=== PATIENT | male | born 1955 ===

== ENCOUNTER → 2017-12-20 | Outpatient (CLI) | payer BC ==
[2017-12-20 13:18] LABS: ALBUMIN 3.7 gm/dl (3.4-5.0); ALT/SGPT 27 U/L (12-78); AST/SGOT 19 U/L (15-37); BLOOD UREA NITROGEN 18 mg/dl (7-18); CALCIUM 8.7 mg/dl (8.5-10.1); CARBON DIOXIDE 27 mmol/L (21-32); CREATININE 1.05 mg/dl (0.60-1.40); GLUCOSE 103 mg/dl (70-99); POTASSIUM 3.8 mmol/L (3.5-5.1); SODIUM 139 mmol/L (136-145)
[2017-12-20 13:20] LABS: ALKALINE PHOSPHATASE 68 U/L (45-117); CHOLESTEROL 188 mg/dl (0-200); LDL CHOLESTEROL CALCULATED 106 mg/dl; TOTAL PROTEIN 7.1 gm/dl (6.4-8.2)
== END | disposition home or self-care (01) ==
LOC: C.LABPVFM 09:52
PROVIDERS: ATTEND Family Medicine
DX: I10 Essential (primary) hypertension (principal); E78.5 Hyperlipidemia, unspecified; G47.30 Sleep apnea, unspecified

== ENCOUNTER 2021-02-20 06:25 | Inpatient (IN) ==
[2021-02-20] MEDS ORDERED: SODIUM CHLORIDE 0.9% 500 ML IV ONE ×2 (06:56→08:39)
[2021-02-20] MEDS ORDERED: ACETAMINOPHEN 1,000 MG/100 ML VIAL IV STA (06:56)
[2021-02-20] MEDS ORDERED: IPRATROPIUM BROMIDE/ALBUTEROL respimat INH INH STA (06:56)
[2021-02-20] MEDS ORDERED: guaiFENesin 600 MG TABCR PO STA (06:56)
[2021-02-20] MEDS ORDERED: dexAMETHasone**PF** 10 MG/ML VIAL IV ONE (06:56)
[2021-02-20 07:11] LABS: Basophils # (auto) 0.01 K/uL (0-0.2); Basophils % (auto) 0.1 %; Hematocrit (blood only) 37.3 % (42-52); Hemoglobin 13.6 g/dL (14.0-18.0); Immature Granulocytes # (auto) 0.04 K/uL (0.00-0.02); Immature Granulocytes % (auto) 0.5 %; Lymphocytes # (auto) 0.36 K/uL (1.2-3.4); Lymphocytes % (auto) 4.6 %; Mean Corpuscular Hemoglobin 31.1 pg (25-34); Mean Corpuscular Hgb Conc 36.5 g/dL (32-36); Mean Corpuscular Volume 85.4 fL (80-100); Mean Platelet Volume 9.8 fL (7.4-10.4); Monocytes # (auto) 0.36 K/uL (0.11-0.59); Monocytes % (auto) 4.6 %; Neutrophils # (auto) 7.04 K/uL (1.4-6.5); Neutrophils % (auto) 90.2 %; Platelet Count 256 K/uL (130-400); RDW Coefficient of Variation 13.1 % (11.5-14.5); RDW Standard Deviation 41.1 fL (36.4-46.3); Red Blood Count 4.37 M/uL (4.7-6.1); White Blood Count 7.81 K/uL (4.8-10.8)
--- NOTE | 2021-02-20 07:15 | Emergency Department Note ---
Impression & Plan Pneumonia due to COVID-19 virus, Multifocal pneumonia, Acute respiratory failure with hypoxia ED Provider Note NAME: KAYLA RIVERA AGE: 65 SEX: M ARRIVES VIA: Walk-In INFORMANT: Patient, ED PROVIDER(S): Josh Zaragoza MD CHIEF COMPLAINT: SOB PLAN: Disposition: Admit MEDICAL DECISION MAKING: The patient is a pleasant 65-year-old gentleman with a past medical history of hypertension who presents to the emergency department with worsening shortness of breath found to be hypoxic in the mid 80s despite being on oxygen in the setting of being evaluated emergency department several days ago when he was diagnosed with COVID-19 and multifocal pneumonia related to that with hypoxia room air to 85% and given his risk factors it was strongly recommended that he be admitted but ultimately was decided that he did not want to stay and so home oxygen was arranged to reduce the risk of worsening however he reports he has continued to worsen since then. His at the bedside reports that she was not present when he was seen and only found out that it was recommended that he stay in the hospital on his last visit when he she looked through the paperwork when he got home. The patient admits that he "should have stayed". Today he is agreeable to being admitted to the hospital. Otherwise he reports feeling feverish but has not had objective fever. He has had intermittent sputum production that is thick but white. He reports episode nausea and vomiting when he had increased secretions in his throat yesterday but does not feel nauseated at this time. He denies chest pain, abdominal pain, urinary symptoms. On arrival the patient is uncomfortable, moderately dyspneic with mild respiratory distress, afebrile with respiratory rate in the 30s and hypoxic to 85% on 2 L nasal cannula with vital signs otherwise stable. Once placed on ox ygen mask at 10 L the patient's O2 saturation gradually improved to low-mid 90s and he appeared more comfortable. On exam the patient has rhonchi of the lower lung coates. Abdomen is benign. He appears clinically dry. EKG without overt acute ischemia. CXR with worsening multifocal PNA. WBC and platelets wnl. H/H similar to prior. Chemistry without acidosis. Potassium 3.3. Otherwise, electrolytes unremarkable. LFTs nonspecific mild elevations similar to prior visit. Troponin negative/undetectable. BNP wnl. Lipase wnl. Treatment initiated with IVF hydration, dexamethasone, guaifenesin, and Combivent with symptoms stable/improving. Case was d/w Dr. Tanner [facility] [place] hospitalist who will evaluate the patient for admission. Triage Nursing notes reviewed and agree them. Prior medical records reviewed Vital Signs: reviewed and remarkable for hypoxia and tachypnea. Differential diagnosis: Reactive airway disease, pneumonia, pneumothorax, COPD, CHF, infections, cardiac ischemia, pulmonary embolism, musculoskeletal, gastrointestinal, as well as other pathologies. ER treatment provided: See below. Diagnostics interpreted by me: ECG: Sinus rhythm with PACs with aberrant conduction, 74 bpm, right bundle branch block, left anterior fascicular block, no overt ST elevation. Cardiac Monitoring: An order for continuous cardiac monitoring was placed and demonstrated Sinus rhythm with PACs with aberrant conduction, 74 bpm. Laboratory studies: See below Imaging studies: See below Consultation(s): Case was d/w Dr. Tanner [facility] [place] hospitalist who will evaluate the patient for admission. HPI: The patient is a pleasant 65-year-old gentleman with a past medical history of hypertension who presents to the emergency department with worsening shortness of breath found to be hypoxic in the mid 80s despite being on oxygen in the setting of being evaluated emergency department several days ago when he was diagnosed with COVID-19 and multifocal pneumonia related to that with hypoxia room air to 85% and given his risk factors it was strongly recommended that he be admitted but ultimately was decided that he did not want to stay and so home oxygen was arranged to reduce the risk of worsening however he reports he has continued to worsen since then. His at the bedside reports that she was not present when he was seen and only found out that it was recommended that he stay in the hospital on his last visit when he she looked through the paperwork when he got home. The patient admits that he "should have stayed". Today he is agreeable to being admitted to the hospital. Otherwise he reports feeling feverish but has not had objective fever. He has had intermittent sputum production that is thick but white. He reports episode nausea and vomiting when he had increased secretions in his throat yesterday but does not feel nauseated at this time. He denies chest pain, abdominal pain, urinary s ymptoms. ROS: See above HPI for pertinent positives & negatives. A total of 10 systems reviewed and were otherwise negative. PAST MEDICAL HISTORY:See Below PAST SURGICAL HISTORY:See Below FAMILY HISTORY:See Below SOCIAL HISTORY:See Below HOME MEDICATIONS:See Below ALLERGIES:See Below VITALS:See Below PHYSICAL EXAMINATION: GENERAL: Awake, alert, uncomfortable-appearing, in no distress HENT: Normocephalic, atraumatic. Oropharynx with dry mucous membranes and otherwise unremarkable. EYES: Normal conjunctiva. Sclera non-icteric. NECK: Supple. No nuchal rigidity. FROM. No JVD. RESPIRATORY: Rhonchi of lower lung coates bilaterally. Tachypneic with moderate respiratory distress and increased work of breathing. CARDIAC: Regular rate, normal rhythm. Extremities warm and well perfused. Pulses equal. ABDOMEN: Soft, non-distended. No tenderness to palpation. No rebound or guarding. No masses. RECTAL: Deferred. MUSCULOSKELETAL: Chest examination reveals no tenderness. The back is symmetrical on inspection without obvious abnormality. There is no CVA tende rness to palpation. No joint edema. LOWER EXTREMITIES: Calves are equal size bilaterally and non-tender. No edema. No discoloration. NEURO: Normal sensorium. No sensory or motor deficits noted. SKIN: No rash or jaundice noted. ED COURSE: Critical Care: I have personally spent greater than 45 minutes of critical care time in the direct management of this patient. This includes bedside care, interpretation of diagnostic studies, and testing, discussion with consultants, patient, and family members, and other required patient management activities. This 45 minutes is in excess of all separately billable procedures. Josh Zaragoza MD Past Med/Surg History Medical History Screening for colon cancer Screening for prostate cancer Surgical History Hx of tonsillectomy Family History Denies family history of Ovarian cancer Prostate cancer Diabetes Myocardial infarction Breast cancer Colorectal cancer Hypertension Social History Smoking Status: Never smoker Second Hand Exposure: No; Hx Alcohol Use: No Hx Substance Use: No Preferred Language: Citizen Of [place] Communication Ability: Effective Pillowcase Folder Required: No Beliefs That Will Affect Care: None marital status: Current Living Situation: Spouse current occupational status: retired current occupation: [employer] Other Information That Helps Us Care for You: No Feels Safe at Home: Yes Safety Concerns: Feels Safe At This Time caffeine: Yes (soda) Dental Care, Regularly: Yes Physical Activity Frequency: Does not Exercise Seatbelt Use: sometimes Sunscreen Use: No Assistive Devices: Cane Allergies Allergies Allergy/AdvReac Type Severity Reaction Status Date / Time No Known Allergies Allergy Verified 02/16/21 10:49 Home Meds Home Medications Medication Instructions Recorded Confirmed cholecalciferol (vitamin D3) 25 mcg PO DAILY 02/20/21 02/20/21 [Vitamin D3] magnesium 200 mg PO DAILY 02/20/21 02/20/21 Previous Rx's Medication Instructions Recorded triamterene 37.5 1 tab PO DAILY #90 tab 09/09/20 mg-hydrochlorothiazide 25 mg tablet lisinopril 10 mg tablet 10 mg PO DAILY #30 tab 01/06/21 amoxicillin 875 mg-potassium 1 tab PO BID #14 tab 02/16/21 clavulanate 125 mg tablet dexamethasone [Decadron] 6 mg PO DAILY #10 tab 02/17/21 Results & Data (ED) Vital Signs Vital Signs - 24 hr 02/20/21 06:30 02/20/21 06:40 02/20/21 06:41 Temperature 36.4 C L Temperature Source Temporal Artery Scan Pulse Rate 76 Pulse Rate [Apical] Pulse Rate from SpO2 Sensor Respiratory Rate 30 H Respiratory Effort / Characteristics Labored Blood Pressure 149/76 H Blood Pressure [Right Arm] Blood Pressure Mean 100 Blood Pressure Mean [Right Arm] Blood Pressure Position Sitting Blood Pressure Position [Right Arm] Pulse Oximetry 85 L 84 L 91 Oxygen Delivery Method Nasal Cannula Nasal Cannula Oxymask Oxygen Flow Rate 2 2 10 Sepsis Recent Fever Within 48 Hours Yes Sepsis New/Unexplained Change in Mental Status No Sepsis Action Taken by Nursing No Action Required Oxygen Flow Rate - Titration 6 Pulse Oximetry Post Tiitration 86 L 02/20/21 06:44 02/20/21 06:45 02/20/21 06:50 Temperature Temperature Source Pulse Rate 76 76 79 Pulse Rate [Apical] 75 Pulse Rate from SpO2 Sensor 62 62 73 Respiratory Rate 26 H 21 37 H Respiratory Effort / Characteristics Blood Pressure 111/82 Blood Pressure [Right Arm] 111/82 Blood Pressure Mean 91 Blood Pressure Mean [Right Arm] 91 Blood Pressure Position Blood Pressure Position [Right Arm] Sitting Pulse Oximetry 92 94 94 Oxygen Delivery Method Oxymask Oxygen Flow Rate 10 Sepsis Recent Fever Within 48 Hours Sepsis New/Unexplained Change in Mental Status Sepsis Action Taken by Nursing Oxygen Flow Rate - Titration Pulse Oximetry Post Tiitration 02/20/21 07:00 02/20/21 07:10 02/20/21 07:20 Temperature Temperature Source Pulse Rate 75 75 71 Pulse Rate [Apical] Pulse Rate from SpO2 Sensor 69 60 72 Respiratory Rate 20 29 H 19 Respiratory Effort / Characteristics Blood Pressure 135/83 Blood Pressure [Right Arm] Blood Pressure Mean 100 Blood Pressure Mean [Right Arm] Blood Pressure Position Blood Pressure Position [Right Arm] Pulse Oximetry 96 96 94 Oxygen Delivery Method Oxygen Flow Rate Sepsis Recent Fever Within 48 Hours Sepsis New/Unexplained Change in Mental Status Sepsis Action Taken by Nursing Oxygen Flow Rate - Titration Pulse Oximetry Post Tiitration 02/20/21 07:30 02/20/21 07:40 02/20/21 07:50 Temperature Temperature Source Pulse Rate 72 77 70 Pulse Rate [Apical] Pulse Rate from SpO2 Sensor 68 76 60 Respiratory Rate 27 H 16 19 Respiratory Effort / Characteristics Blood Pressure 128/65 Blood Pressure [Right Arm] Blood Pressure Mean 86 Blood Pressure Mean [Right Arm] Blood Pressure Position Blood Pressure Position [Right Arm] Pulse Oximetry 90 93 98 Oxygen Delivery Method Oxygen Flow Rate Sepsis Recent Fever Within 48 Hours Sepsis New/Unexplained Change in Mental Status Sepsis Action Taken by Nursing Oxygen Flow Rate - Titration Pulse Oximetry Post Tiitration 02/20/21 08:00 02/20/21 08:10 02/20/21 08:20 Temperature Temperature Source Pulse Rate 70 73 70 Pulse Rate [Apical] Pulse Rate from SpO2 Sensor 54 L 61 68 Respiratory Rate 25 H 21 34 H Respiratory Effort / Characteristics Blood Pressure 112/71 Blood Pressure [Right Arm] Blood Pressure Mean 84 Blood Pressure Mean [Right Arm] Blood Pressure Position Blood Pressure Position [Right Arm] Pulse Oximetry 98 96 96 Oxygen Delivery Method Oxymask Oxygen Flow Rate 10 Sepsis Recent Fever Within 48 Hours Sepsis New/Unexplained Change in Mental Status Sepsis Action Taken by Nursing Oxygen Flow Rate - Titration Pulse Oximetry Post Tiitration 02/20/21 08:30 02/20/21 08:40 02/20/21 08:50 Temperature Temperature Source Pulse Rate 71 67 72 Pulse Rate [Apical] Pulse Rate from SpO2 Sensor 69 53 L 66 Respiratory Rate 26 H 29 H 17 Respiratory Effort / Characteristics Blood Pressure 130/83 Blood Pressure [Right Arm] Blood Pressure Mean 98 Blood Pressure Mean [Right Arm] Blood Pressure Position Blood Pressure Position [Right Arm] Pulse Oximetry 98 98 97 Oxygen Delivery Method Oxygen Flow Rate Sepsis Recent Fever Within 48 Hours Sepsis New/Unexplained Change in Mental Status Sepsis Action Taken by Nursing Oxygen Flow Rate - Titration Pulse Oximetry Post Tiitration 02/20/21 09:02 02/20/21 09:10 02/20/21 09:20 Temperature Temperature Source Pulse Rate 63 64 64 Pulse Rate [Apical] Pulse Rate from SpO2 Sensor 63 64 63 Respiratory Rate 30 H 20 28 H Respiratory Effort / Characteristics Blood Pressure 156/94 H Blood Pressure [Right Arm] Blood Pressure Mean 114 Blood Pressure Mean [Right Arm] Blood Pressure Position Blood Pressure Position [Right Arm] Pulse Oximetry 96 98 99 Oxygen Delivery Method Oxygen Flow Rate Sepsis Recent Fever Within 48 Hours Sepsis New/Unexplained Change in Mental Status Sepsis Action Taken by Nursing Oxygen Flow Rate - Titration Pulse Oximetry Post Tiitration Laboratory Data Attestation: I reviewed the patient's lab results. Result diagrams: 02/20/21 06:59 02/20/21 06:59 Lab Results 02/20/21 02/20/21 02/20/21 Range/Units 06:59 06:59 06:59 WBC 7.81 (4.8-10.8) K/uL RBC 4.37 L (4.7-6.1) M/uL Hgb 13.6 L (14.0-18.0) g/dL Hct 37.3 L (42-52) % MCV 85.4 (80-100) fL MCH 31.1 (25-34) pg MCHC 36.5 H (32-36) g/dL RDW Std Deviation 41.1 (36.4-46.3) fL RDW Coeff of Kristin 13.1 (11.5-14.5) % Plt Count 256 (130-400) K/uL MPV 9.8 (7.4-10.4) fL Immature Gran % (Auto) 0.5 % Neut % (Auto) 90.2 % Lymph % (Auto) 4.6 % [place] % (Auto) 4.6 % Eos % (Auto) 0.0 % Baso % (Auto) 0.1 % Neut # (Auto) 7.04 H (1.4-6.5) K/uL Lymph # (Auto) 0.36 L (1.2-3.4) K/uL [place] # (Auto) 0.36 (0.11-0.59) K/uL Eos # (Auto) 0.00 (0-0.5) K/uL Baso # (Auto) 0.01 (0-0.2) K/uL Immature Gran # (Auto) 0.04 H (0.00-0.02) K/uL D-Dimer 970 H* (0-500) ug/L FEU Sodium 135 L (136-145) mmol/L Potassium 3.3 L (3.5-5.1) mmol/L Chloride 102 (98-107) mmol/L Carbon Dioxide 24 (21-32) mmol/L Anion Gap 9.0 (3-11) BUN 19 H (7-18) mg/dl Creatinine 0.99 (0.6-1.4) mg/dl Est Cr Clr Drug Dosing 107.7 ml/min Est GFR ( Amer) 91.6 Est GFR (Non-Af Amer) 79.0 BUN/Creatinine Ratio 19.4 (10-20) Glucose 131 H (70-99) mg/dl Calcium 8.1 L (8.5-10.1) mg/dl Phosphorus 2.6 (2.5-4.9) mg/dl Magnesium 2.2 (1.8-2.4) mg/dl Total Bilirubin 1.7 H (0.2-1) mg/dl Direct Bilirubin 0.5 H (0-0.2) mg/dl AST 65 H (15-37) U/L ALT 95 H (12-78) U/L Alkaline Phosphatase 69 (45-117) U/L Troponin I < 0.015 (0-0.045) ng/ml C-Reactive Protein (0-0.29) mg/dl NT-Pro-B Natriuret Pep 449 (0-900) pg/ml Total Protein 6.7 (6.4-8.2) gm/dl Albumin 2.6 L (3.4-5.0) gm/dl Globulin 4.1 H (2.5-4.0) gm/dl Albumin/Globulin Ratio 0.6 L (0.9-2) Lipase 220 (73-393) U/L Procalcitonin (0-0.5) ng/ml 02/20/21 02/20/21 Range/Units 06:59 06:59 WBC (4.8-10.8) K/uL RBC (4.7-6.1) M/uL Hgb (14.0-18.0) g/dL Hct (42-52) % MCV (80-100) fL MCH (25-34) pg MCHC (32-36) g/dL RDW Std Deviation (36.4-46.3) fL RDW Coeff of Kristin (11.5-14.5) % Plt Count (130-400) K/uL MPV (7.4-10.4) fL Immature Gran % (Auto) % Neut % (Auto) % Lymph % (Auto) % [place] % (Auto) % Eos % (Auto) % Baso % (Auto) % Neut # (Auto) (1.4-6.5) K/uL Lymph # (Auto) (1.2-3.4) K/uL [place] # (Auto) (0.11-0.59) K/uL Eos # (Auto) (0-0.5) K/uL Baso # (Auto) (0-0.2) K/uL Immature Gran # (Auto) (0.00-0.02) K/uL D-Dimer (0-500) ug/L FEU Sodium (136-145) mmol/L Potassium (3.5-5.1) mmol/L Chloride (98-107) mmol/L Carbon Dioxide (21-32) mmol/L Anion Gap (3-11) BUN (7-18) mg/dl Creatinine (0.6-1.4) mg/dl Est Cr Clr Drug Dosing ml/min Est GFR ( Amer) Est GFR (Non-Af Amer) BUN/Creatinine Ratio (10-20) Glucose (70-99) mg/dl Calcium (8.5-10.1) mg/dl Phosphorus (2.5-4.9) mg/dl Magnesium (1.8-2.4) mg/dl Total Bilirubin (0.2-1) mg/dl Direct Bilirubin (0-0.2) mg/dl AST (15-37) U/L ALT (12-78) U/L Alkaline Phosphatase (45-117) U/L Troponin I (0-0.045) ng/ml C-Reactive Protein 9.13 H (0-0.29) mg/dl NT-Pro-B Natriuret Pep (0-900) pg/ml Total Protein (6.4-8.2) gm/dl Albumin (3.4-5.0) gm/dl Globulin (2.5-4.0) gm/dl Albumin/Globulin Ratio (0.9-2) Lipase (73-393) U/L Procalcitonin 0.05 (0-0.5) ng/ml Administered Medications Enoxaparin Sodium (Enoxaparin Inj 40 Mg/0.4 Ml Syr) 40 mg SQ QAM HAY Stop: 03/22/21 11:59 Last Admin: 02/20/21 12:04 Dose: 40 mg Documented by: [id number] Discontinued Medications Albuterol (Ipratropium Loiza/Albuterol Respimat Inh) 2 puffs INH NOW STA Stop: 02/20/21 06:57 Last Admin: 02/20/21 07:35 Dose: 2 puffs Documented by: [id number] Dexamethasone Sodium Phosphate (DexamethasonePf 10 Mg/Ml Vial) 10 mg IV NOW ONE Stop: 02/20/21 06:57 Last Admin: 02/20/21 07:33 Dose: 10 mg Documented by: [id number] Guaifenesin (Guaifenesin 600 Mg Tabcr) 600 mg PO NOW STA Stop: 02/20/21 06:57 Last Admin: 02/20/21 07:34 Dose: 600 mg Documented by: [id number] Acetaminophen (Ofirmev) 1,000 mg in 100 mls @ 400 mls/hr IV NOW STA Stop: 02/20/21 07:10 Last Infusion: 02/20/21 08:26 Dose: 0 mls/hr Documented by: [id number] Admin: 02/20/21 07:35 Dose: 400 mls/hr Documented by: [id number] Sodium Chloride (Nss) 500 mls @ 999 mls/hr IV .Q31M ONE Stop: 02/20/21 07:26 Last Infusion: 02/20/21 08:27 Dose: 0 mls/hr Documented by: [id number] Admin: 02/20/21 07:37 Dose: 999 mls/hr Documented by: [id number] Potassium Chloride (K Bradly / Wtr) 10 meq in 100 mls @ 100 mls/hr IV Q1H HAY Stop: 02/20/21 10:44 Last Admin: 02/20/21 12:01 Dose: Not Given Documented by: [id number] Infusion: 02/20/21 12:01 Dose: 0 mls/hr Documented by: [id number] Admin: 02/20/21 09:08 Dose: 100 mls/hr Documented by: [id number] Sodium Chloride (Nss) 500 mls @ 999 mls/hr IV .Q31M ONE Stop: 02/20/21 09:09 Last Infusion: 02/20/21 12:43 Dose: 0 mls/hr Documented by: [id number] Admin: 02/20/21 09:09 Dose: 999 mls/hr Documented by: [id number] Ioversol (Ioversol 350 500ml) 117 ml IV ONCE ONE Stop: 02/20/21 10:54 Last Admin: 02/20/21 10:54 Dose: 117 ml Documented by: [id number] Lisinopril (Lisinopril 10 Mg Tab) 10 mg PO ONCE ONE Stop: 02/20/21 15:36 Last Admin: 02/20/21 16:16 Dose: 10 mg Documented by: [id number] Potassium Chloride (Potassium Chloride Crtab 20 Meq Tabcr) 40 meq PO NOW STA Stop: 02/20/21 08:40 Last Admin: 02/20/21 09:08 Dose: 40 meq Documented by: [id number] Triamterene/Hydrochlorothiazide (Triamterene/Hctz 37.5/25mg Tab) 1 tab PO ONCE ONE Stop: 02/20/21 15:35 Last Admin: 02/20/21 16:16 Dose: 1 tab Documented by: [id number] Imaging Data Radiologist's Impression: Chest X-Ray 02/20/21 06:56 XR chest 1V portable CLINICAL HISTORY: Chest pain. COMPARISON STUDY: Chest radiograph February 17, 2021. FINDINGS: Lung volumes are normal. There is no pneumothorax or pleural effusion. There has been progression of extensive bilateral airspace opacities since prior exam of February 17, 2021. Cardiomegaly is noted. IMPRESSION: Progression of extensive bilateral airspace opacities which favor multifocal pneumonia. Radiographic follow up to ensure resolution is recommended ACT 112: Negative or not required by law. Electronically signed by: Wicho Orlando M.D. 02/20/2021 8:36 AM Discharge Plan Visit Data Chief Complaint: Respiratory Problems Stated Complaint: OXYGEN LEVEL IN 80'S ED Provider: Josh Zaragoza Discharge Problem: Pneumonia due to COVID-19 virus, Multifocal pneumonia, Acute respiratory failure with hypoxia Patient Disposition: Admitted As Inpatient Discharge Instructions Interventions: ED Discharge Assessment Last Done: 02/20/21 10:58
[2021-02-20 07:28] LABS: Alanine Aminotransferase 95 U/L (12-78); Albumin Level 2.6 gm/dl (3.4-5.0); Aspartate Aminotransferase 65 U/L (15-37); BUN Creatinine Ratio 19.4 (10-20); Bilirubin Direct 0.5 mg/dl (0-0.2); Blood Urea Nitrogen 19 mg/dl (7-18); Calcium 8.1 mg/dl (8.5-10.1); Carbon Dioxide 24 mmol/L (21-32); Chloride 102 mmol/L (98-107); Creatinine Clr Calc Pharmacy 107.7 ml/min; Est GFR (African American) 91.6; Glucose 131 mg/dl (70-99); Lipase 220 U/L (73-393); Magnesium 2.2 mg/dl (1.8-2.4); Potassium 3.3 mmol/L (3.5-5.1); Sodium 135 mmol/L (136-145)
[2021-02-20 07:31] LABS: Albumin Globulin Ratio 0.6 (0.9-2); Alkaline Phosphatase 69 U/L (45-117); Bilirubin,Total 1.7 mg/dl (0.2-1); Globulin 4.1 gm/dl (2.5-4.0); NT Pro B Type Natriuretic Pept 449 pg/ml (0-900); Phosphorus 2.6 mg/dl (2.5-4.9); Total Protein 6.7 gm/dl (6.4-8.2); Troponin I < 0.015 ng/ml (0-0.045)
--- NOTE | 2021-02-20 08:37 | XRay Report ---
XR chest 1V portable CLINICAL HISTORY: Chest pain. COMPARISON STUDY: Chest radiograph February 17, 2021. FINDINGS: Lung volumes are normal. There is no pneumothorax or pleural effusion. There has been progr ession of extensive bilateral airspace opacities since prior exam of February 17, 2021. Cardiomegaly is noted. IMPRESSION: Progression of extensive bilateral airspace opacities which favor multifocal pneumonia. R adiographic follow up to ensure resolution is recommended ACT 112: Negative or not required by law. Electronically signed by: Wicho Orlando M.D. 02/20/2021 8:36 AM
[2021-02-20] MEDS ORDERED: POTASSIUM CHLORIDE CRTAB 20 MEQ TABCR PO STA (08:39)
[2021-02-20] MEDS: POTASSIUM CHLORIDE / WTR 10 MEQ/100 ML PLCT IV SCH ×2 (09:08→12:01)
[2021-02-20 09:51] LABS: D Dimer 970 ug/L FEU (0-500)
[2021-02-20] MEDS ORDERED: OPTIRAY 350 500ml IV ONE (10:53)
--- NOTE | 2021-02-20 11:17 | CT Scan Report ---
CT angio chest PE protocol CT DOSE: 962.70 mGy.cm HISTORY: 65 years-old Male with PE. Acute shortness of breath. COVID Positive. TECHNIQUE: Multiple CTA images of the chest were obtained after the intravenous administration of 117 ml Optiray. Coronal and sagittal MIPS were obtained from the axial data set and were submitted for review. All measurements were obtained according to NASCET criteria. A dose lowering technique was u tilized adhering to the principles of ALARA. COMPARISON: Chest radiograph of same day FINDINGS: CTA: The heart is upper limits of normal in size. No pericardial effusion. Extensive coronary artery calci fications. No thoracic aortic aneurysm or dissection. There is patency of the imaged great vessels. T he pulmonary artery is opacified to level of the proximal subsegmental branches and demonstrates no f illing defects to suggest thromboembolic disease. CT CHEST: No thyroid nodule. Right hilar adenopathy with lymph nodes measuring up to 1.6 cm in short axis. Trac e layering pleural effusions. No pneumothorax. Extensive bilateral and peripheral predominant groundg lass and alveolar opacities are noted within all segments bilaterally. Mild bronchiectasis of the peterson g bases. The central airways appear patent. No pneumoperitoneum. Small hiatal hernia. Unremarkable soft tissues. There is no acute fracture. IMPRESSION: 1. No pulmonary emboli. 2. Extensive bilateral groundglass and alveolar opacities compatible with viral pneumonia. 3. Right hilar adenopathy, likely reactive. 4. Trace pleural effusions. 5. Small hiatal hernia. ACT 112: Negative or not required by law. The above report was generated using voice recognition software. It may contain grammatical, syntax o r spelling errors. Electronically signed by: Keo Daniel M.D. 02/20/2021 11:16 AM
[2021-02-20] MEDS ORDERED: MAGNESIUM HYDROXIDE SUSP 30 ML UDC PO PRN (11:22)
[2021-02-20] MEDS ORDERED: ALUMINUM/MAGNESIUM SUSP 30 ML UDC PO PRN (11:22)
[2021-02-20] MEDS ORDERED: ACETAMINOPHEN 325 MG TAB PO PRN (11:22)
[2021-02-20] MEDS ORDERED: ONDANSETRON INJ 2 MG/ML 2 ML VIAL IV PRN (11:22)
[2021-02-20] MEDS ORDERED: POLYETHYLENE (MIRALAX) 17 GM PACK PO PRN (11:22)
[2021-02-20] MEDS: ENOXAPARIN INJ 40 MG/0.4 ML SYR SQ SCH (12:04)
--- NOTE | 2021-02-20 13:21 | History & Physical Report ---
Date of Service February 20, 2021 Assessment & Plan (1) Pneumonia due to COVID-19 virus: He is about 14 days into his course of illness, so clearly past the initial viremia type phase. Because of this, treatment such as remdesivir/plasma/monoclonal antibodies would seem to be of very little utility. Will utilize Decadron to try to lessen the immune system over response, and aggressive supportive care. Ongoing vigilance for anything that would look like secondary bacterial overgrowth (currently none), or anything that would start to look like any new onset CHF/bronchospasm (currently none). (2) Hypoxia: Due to Covid pneumonia. Supportive care. (3) Benign hypertension: Blood pressure is acceptable, continue his home meds (4) Hyperlipidemia: He is on no medication for this (5) DVT prophylaxis: Lovenox 40 mg subcutaneous daily (6) Discharge planning issues: Admit to Covid unit/telemetry status, he is a full code. updated and answered all questions to the best of my ability Admission and Anticipated Discharge Date Admission Date: February 20, 2021 History of Present Illness Chief Complaint: Shortness of breath Primary Care Provider: Artis Donato DO Mr. Stephens is a delightful gentleman who presents after about 2 weeks of worsen ing respiratory symptoms. He notes he first got sick about 14 days ago, but at that point in time he noted it was mostly upper respiratory symptoms and sinus pressure. Further into that course, he started to have a bit more lower respiratory symptoms and some purulent sputum. In chart review it appears it was recommended that he have Covid testing but declined at the time, and was given empiric Augmentin. His symptoms continued to worsen and he came to the ER 3 days ago. At that point he looked fairly ill and it was recommended that he stay by both the ER physician and the admitting hospitalist. He declined and left against advice then. Since going home he has continued to feel worse and generally feeling very dyspneic with just about anything, dyspnea on exertion. Not really coughing up a lot of sputum anymore, he does have fevers every couple days and then whenever the fever breaks he has sweats. He did not have much of any appetite for much of the last 2 weeks, and was not eating a whole lot, but fortunately did not have much of a significant loss in taste or smell. Whenever I see him today he notes he is finally starting his appetite back, and as I enter his room he was actually eating lunch. He has no GI symptoms, no nausea vomiting diarrhea. No leg pain or swelling. Otherwise feels okay Allergies Allergy/AdvReac Type Severity Reaction Status Date / Time No Known Allergies Allergy Verified 02/16/21 10:49 Home Medications Medication Instructions Recorded Confirmed Type triamterene 37.5 1 tab PO DAILY #90 tab 09/09/20 02/20/21 Rx mg-hydrochlorothiazide 25 mg tablet lisinopril 10 mg tablet 10 mg PO DAILY #30 tab 01/06/21 02/20/21 Rx amoxicillin 875 mg-potassium 1 tab PO BID #14 tab 02/16/21 02/20/21 Rx clavulanate 125 mg tablet dexamethasone [Decadron] 6 mg PO DAILY #10 tab 02/17/21 02/20/21 Rx cholecalciferol (vitamin D3) 25 mcg PO DAILY 02/20/21 02/20/21 History [Vitamin D3] magnesium 200 mg PO DAILY 02/20/21 02/20/21 History Past Med/Surg History Medical History Screening for colon cancer Screening for prostate cancer Surgical History Hx of tonsillectomy Family History Denies family history of Ovarian cancer Prostate cancer Diabetes Myocardial infarction Breast cancer Colorectal cancer Hypertension Social History Smoking Status: Never smoker Second Hand Exposure: No; Hx Alcohol Use: No Hx Substance Use: No Preferred Language: Portuguese Communication Ability: Effective Insurance And Benefits Clerk Required: No Beliefs That Will Affect Care: None marital status: Current Living Situation: Spouse current occupational status: retired current occupation: [employer] Other Information That Helps Us Care for You: No Feels Safe at Home: Yes Safety Concerns: Feels Safe At This Time caffeine: Yes (soda) Dental Care, Regularly: Yes Physical Activity Frequency: Does not Exercise Seatbelt Use: sometimes Sunscreen Use: No Assistive Devices: Glasses, Oxygen - Continuous and Walker Review of Systems Review of Systems: All systems reviewed & are unremarkable except as noted in HPI & below Physical Exam Physical Exam: In general he is awake alert oriented x3, pleasant no distress. HEENT normocephalic atraumatic mucous membranes are moist. Cardio is regular without rubs murmurs or gallops. Lungs are clear but fairly quiet throughout no rales rhonchi or wheezes but he does have diminished air entry. No accessory muscle use. Abdomen is soft nondistended nontender no masses organomegaly. Extremities show no cyanosis clubbing or edema, no calf tenderness no cords. Neuro shows cranial nerves II through XII be grossly intact gross motor and sensory appears to be intact with no focal deficits. Musculoskeletal shows no focal lesions or gross deformities. Mental status shows good recent and remote recall normal mood and affect good judgment and insight. Labs and diagnostics reviewed, CT reviewed with patient as well. Results & Data Results & Data ([facility]) Vital Signs (Past 12 Hours) Vital Signs Temp Pulse Pulse Resp BP BP Pulse Ox 02/20/21 11:26 97.7 F 75 37 H 157/95 H 90 02/20/21 11:20 75 02/20/21 10:58 70 20 155/74 H 99 02/20/21 10:40 62 35 H 99 02/20/21 10:31 60 25 H 97 02/20/21 10:30 62 28 H 132/78 96 02/20/21 10:20 63 21 99 02/20/21 10:10 62 24 99 02/20/21 10:00 62 20 153/85 H 99 02/20/21 09:50 62 22 99 02/20/21 09:40 65 29 H 98 02/20/21 09:31 62 25 H 99 02/20/21 09:30 62 26 H 156/95 H 98 02/20/21 09:20 64 28 H 99 02/20/21 09:10 64 20 98 02/20/21 09:02 63 30 H 156/94 H 96 02/20/21 08:50 72 17 97 02/20/21 08:40 67 29 H 98 02/20/21 08:30 71 26 H 130/83 98 02/20/21 08:20 70 34 H 96 02/20/21 08:10 73 21 96 02/20/21 08:00 70 25 H 112/71 98 02/20/21 07:50 70 19 98 02/20/21 07:40 77 16 93 02/20/21 07:30 72 27 H 128/65 90 02/20/21 07:20 71 19 94 02/20/21 07:10 75 29 H 96 02/20/21 07:00 75 20 135/83 96 02/20/21 06:50 79 37 H 94 02/20/21 06:45 76 21 94 02/20/21 06:44 76 75 26 H 111/82 111/82 92 02/20/21 06:41 91 02/20/21 06:40 84 L 02/20/21 06:30 97.5 F L 76 30 H 149/76 H 85 L Code Status & VTE Plan VTE Prophylaxis Plan VTE Prophylaxis will be ordered: Yes PG Care Time/CCT Total # of Minutes Spent Total Time Spent with Patient: Total time spent is greater than 50% in coordination of care (as documented) at patient's floor/unit and/or counseling patient: Coding Level of Care Code 39443 Initial Inpt Care Lvl 3 Diagnoses Pneumonia due to COVID-19 virus U07.1; J12.82 Hypoxia R09.02 Benign hypertension I10 Hyperlipidemia E78.5 DVT prophylaxis Z29.9 Discharge planning issues Z02.9
[2021-02-20] MEDS ORDERED: TRIAMTERENE/HCTZ 37.5/25MG TAB PO ONE (15:34)
[2021-02-20] MEDS ORDERED: lisinopril 10 MG TAB PO ONE (15:35)
--- NOTE | 2021-02-21 00:05 | Electrocardiogram Report ---
Test Reason : Blood Pressure : / mmHG Vent. Rate : 074 BPM Atrial Rate : 074 BPM P-R Int : 152 ms QRS Dur : 130 ms QT Int : 436 ms P-R-T Axes : 025 123 020 degrees QTc Int : 483 ms Sinus rhythm with Premature ventricular complexes Right bundle branch block Left posterior fascicular block Bifascicular block Abnormal ECG When compared with ECG of 17-FEB-2021 16:59, T wave inversion now evident in Anterior leads Confirmed by Darion Glover ([id number]) on 02/21/2021 12:04:32 AM Referred By: Confirmed By:Darion Glover
[2021-02-21] MEDS: dexAMETHasone 6 MG in SYRINGE 0 ML IV SCH (08:48)
[2021-02-21] MEDS: MAGNESIUM OXIDE 400 MG TAB PO SCH (08:49)
[2021-02-21] MEDS: TRIAMTERENE/HCTZ 37.5/25MG TAB PO SCH (08:49)
[2021-02-21] MEDS: lisinopril 10 MG TAB PO SCH (08:49)
[2021-02-21] MEDS: ENOXAPARIN INJ 40 MG/0.4 ML SYR SQ SCH (08:49)
[2021-02-21] MEDS: CHOLECALCIFEROL 1,000 UNITS 25 MCG TAB PO SCH (08:49)
--- NOTE | 2021-02-21 20:00 | Hospitalist Progress Note ---
Date of Service February 21, 2021 Assessment & Plan (1) Pneumonia due to COVID-19 virus: He is about 15 days into his course of illness, so clearly past the initial viremia type phase. Because of this, treatment such as remdesivir/plasma/monoclonal antibodies would seem to be of very little utility. Continue Decadron to try to lessen the immune system over-response, and aggressive supportive care. Ongoing vigilance for anything that would look like secondary bacterial overgrowth (currently none), or anything that would start to look like any new onset CHF/bronchospasm (currently none). (2) Hypoxia: Due to Covid pneumonia. Supportive care. (3) Benign hypertension: Blood pressure is acceptable given the circumstances, continue his home meds (4) Hyperlipidemia: He is on no medication for this (5) DVT prophylaxis: Lovenox 40 mg subcutaneous daily (6) Discharge planning issues: Admitted to Covid unit/telemetry status, he is a full code. updated and answered all questions to the best of my ability Admission and Anticipated Discharge Date Admission Date: February 20, 2021 Subjective Feeling pretty good overall. Notices obvious dyspnea whenever he goes to the bathroom and back, but he actually notices that his recovery time is a little bit shorter than it was yesterday. Also had a drenching sweat in the middle of the night last night. He is trying to work on deep breathing, he is trying to work on being is up and active as his oxygenation allows, and otherwise feels basically unchanged. Updated at his request. Review of Systems Review of Systems: All systems reviewed & are unremarkable except as noted in HPI & below Physical Exam Physical Exam: In general he is awake and alert pleasant no distress. HEENT normocephalic atraumatic mucous membranes moist. Lungs are clear to auscultation bilaterally except for a very faint squeaky type wheeze in the left midlung field, no other rales rhonchi or wheezes good effort. Skin shows no rashes no pallor or icterus. He has no calf tenderness, no erythema, no cords. No focal neuro deficits. Results & Data Results & Data ([facility]) Vital Signs (Past 12 Hours) Vital Signs Temp Pulse Pulse Resp BP Pulse Ox Pulse Ox 02/21/21 19:04 97.7 F 69 17 147/91 H 92 02/21/21 15:20 97.5 F L 70 20 138/81 93 02/21/21 15:00 74 02/21/21 14:00 92 02/21/21 11:32 97.5 F L 68 22 136/67 92 02/21/21 08:00 56 L PG Care Time/CCT Total # of Minutes Spent Total Time Spent with Patient: Total time spent is greater than 50% in coordination of care (as documented) at patient's floor/unit and/or counseling patient: Coding Level of Care Code 41730 Subseq Hosp Care Lvl 3 Diagnoses Pneumonia due to COVID-19 virus U07.1; J12.82 Hypoxia R09.02 Benign hypertension I10 Hyperlipidemia E78.5 DVT prophylaxis Z29.9 Discharge planning issues Z02.9
[2021-02-22 06:51] LABS: Basophils # (auto) 0.01 K/uL (0-0.2); Basophils % (auto) 0.1 %; Eosinophils # (auto) 0.07 K/uL (0-0.5); Eosinophils % (auto) 0.6 %; Hematocrit (blood only) 38.8 % (42-52); Hemoglobin 13.5 g/dL (14.0-18.0); Immature Granulocytes # (auto) 0.07 K/uL (0.00-0.02); Immature Granulocytes % (auto) 0.6 %; Lymphocytes # (auto) 0.78 K/uL (1.2-3.4); Lymphocytes % (auto) 7.1 %; Mean Corpuscular Hemoglobin 30.5 pg (25-34); Mean Corpuscular Hgb Conc 34.8 g/dL (32-36); Mean Corpuscular Volume 87.6 fL (80-100); Mean Platelet Volume 9.9 fL (7.4-10.4); Monocytes # (auto) 0.58 K/uL (0.11-0.59); Monocytes % (auto) 5.3 %; Neutrophils # (auto) 9.41 K/uL (1.4-6.5); Neutrophils % (auto) 86.3 %; Platelet Count 309 K/uL (130-400); Red Blood Count 4.43 M/uL (4.7-6.1); White Blood Count 10.92 K/uL (4.8-10.8)
[2021-02-22 07:07] LABS: BUN Creatinine Ratio 23.7 (10-20); Calcium 8.7 mg/dl (8.5-10.1); Creatinine Clr Calc Pharmacy 110.1 ml/min; Est GFR (African American) 95.1; Potassium 3.7 mmol/L (3.5-5.1)
[2021-02-22] MEDS: ENOXAPARIN INJ 40 MG/0.4 ML SYR SQ SCH (07:57)
[2021-02-22] MEDS: dexAMETHasone 6 MG in SYRINGE 0 ML IV SCH (07:57)
[2021-02-22] MEDS: CHOLECALCIFEROL 1,000 UNITS 25 MCG TAB PO SCH (07:58)
[2021-02-22] MEDS: lisinopril 10 MG TAB PO SCH (07:58)
[2021-02-22] MEDS: TRIAMTERENE/HCTZ 37.5/25MG TAB PO SCH (07:58)
[2021-02-22] MEDS: MAGNESIUM OXIDE 400 MG TAB PO SCH (07:58)
--- NOTE | 2021-02-22 16:14 | Hospitalist Progress Note ---
Date of Service February 22, 2021 Assessment & Plan (1) Pneumonia due to COVID-19 virus: He is about 16 days into his course of illness, so clearly past the initial viremia type phase. Because of this, treatment such as remdesivir/plasma/monoclonal antibodies would seem to be of very little utility. Continue Decadron to try to lessen the immune system over-response, and aggressive supportive care. With this strategy he seems to be showing good improvement, and his oxygen requirements have dropped considerably over the last 24 hours. Ongoing vigilance for anything that would look like secondary bacterial overgrowth (currently none), or anything that would start to look like any new onset CHF/bronchospasm (currently none). (2) Hypoxia: Due to Covid pneumonia. Supportive care. Showing good improvement. (3) Benign hypertension: Blood pressure shows reasonable control given the circumstances, continue his home meds (4) Hyperlipidemia: He is on no medication for this (5) DVT prophylaxis: Lovenox 40 mg subcutaneous daily (6) Discharge planning issues: Admitted to Covid unit/telemetry status, he is a full code. updated and answered all questions to the best of my ability Admission and Anticipated Discharge Date Admission Date: February 20, 2021 Subjective Feeling a bit better. Noted that lying on his belly helped some, also made him cough up more. Walking around in the room he still gets significantly dyspneic, but notes that trips to and from the toilet are less dyspnea inducing than before. Still trying to be up in the chair and using incentive spirometry. Updated , answered all questions to the best my ability. Review of Systems Review of Systems: All systems reviewed & are unremarkable except as noted in HPI & below Physical Exam Physical Exam: In general he is awake and alert pleasant no distress. HEENT normocephalic atraumatic mucous membranes moist. Lungs are quiet but clear to auscultation bilaterally no rales rhonchi or wheeze with good effort. Skin shows no rashes no pallor or icterus. No focal neuro deficits. Results & Data Results & Data ([facility]) Vital Signs (Past 12 Hours) Vital Signs Temp Pulse Pulse Resp BP Pulse Ox Pulse Ox 02/22/21 15:24 80 02/22/21 15:17 97.5 F L 69 20 117/72 90 02/22/21 14:00 94 04/18/21 07:40 63 02/22/21 07:07 97.5 F L 70 22 117/66 90 PG Care Time/CCT Total # of Minutes Spent Total Time Spent with Patient: Total time spent is greater than 50% in coordination of care (as documented) at patient's floor/unit and/or counseling patient: Coding Level of Care Code 14368 Subseq Hosp Care Lvl 3 Diagnoses Pneumonia due to COVID-19 virus U07.1; J12.82 Hypoxia R09.02 Benign hypertension I10 Hyperlipidemia E78.5 DVT prophylaxis Z29.9 Discharge planning issues Z02.9
[2021-02-23] MEDS: ENOXAPARIN INJ 60 MG/0.6 ML SYR SQ SCH ×2 (08:52→20:19)
[2021-02-23] MEDS: TRIAMTERENE/HCTZ 37.5/25MG TAB PO SCH (08:53)
[2021-02-23] MEDS: MAGNESIUM OXIDE 400 MG TAB PO SCH (08:53)
[2021-02-23] MEDS: CHOLECALCIFEROL 1,000 UNITS 25 MCG TAB PO SCH (08:53)
[2021-02-23] MEDS: dexAMETHasone 6 MG in SYRINGE 0 ML IV SCH (08:54)
[2021-02-23] MEDS: lisinopril 10 MG TAB PO SCH (08:54)
--- NOTE | 2021-02-23 20:56 | Hospitalist Progress Note ---
Date of Service February 23, 2021 Assessment & Plan (1) Pneumonia due to COVID-19 virus: clinically improving day #4 of 10 of dexamethasone 6mg daily cont lovenox 60mg BID for DVT proph due to high risk of VTE w/ COVID cont oxygen & supportive care along with self-proning/pulmonary toilet O2 requirements have dramatically improved over last 48 hours plasma/remdesivir deferred during this admission as patient was well past 10 days into the illness at time of presentation (2) Acute respiratory failure with hypoxia: 2nd COVID-19 pneumonia improving see above (3) Benign hypertension: controlled continue usual meds (4) Hyperlipidemia: not on meds for such (5) Morbid obesity with BMI of 40.0-44.9, adult: BMI ~40 (6) Abnormal LFTs: suspect this is due to COVID-19 infection itself recheck LFTs in am (7) DVT prophylaxis: increase lovenox to 60mg BID given high risk of VTE in setting of COVID PT, OT to be requested updated by phone today Admission and Anticipated Discharge Date Admission Date: February 20, 2021 Subjective patient overall feeling much better no dyspnea at rest occasional cough mild [place] tele stable eating better being very diligent about proning no new complaints Review of Systems Constitutional: + fatigue; no fever and no chills Cardiovascular: no chest pain and no edema Gastrointestinal: no abdominal pain, no nausea and no vomiting Physical Exam Constitutional: + obese; no acute distress and no altered mental status ENMT: external ear and nose normal, oropharynx normal Respiratory: no respiratory distress Auscultation: + diminished lung sounds (bases) and + crackles (faint, scattered, bases ) Cardiovascular: Rate/Rhythm: regular rate and regular rhythm Heart Sounds: normal S1 and normal S2; no murmur Vessels: posterior tibial pulses present and dorsalis pedis pulses present; no JVD Extremities: no edema Gastrointestinal (Abdomen): normal bowel sounds, soft, nontender, no hepatosplenomegaly Psychiatric: A+Ox3, euthymic affect Results & Data Results & Data ([facility]) Vital Signs (Past 12 Hours) Vital Signs Temp Pulse Pulse Resp BP Pulse Ox Pulse Ox 02/23/21 19:02 36.6 C 70 20 127/70 92 02/23/21 16:01 37.1 C 74 21 142/74 H 93 02/23/21 15:57 63 02/23/21 14:00 91 02/23/21 13:50 02/23/21 10:29 36.8 C 74 20 173/84 H 90 Pulse Ox Pulse Ox 02/23/21 19:02 02/23/21 16:01 02/23/21 15:57 02/23/21 14:00 02/23/21 13:50 91 92 02/23/21 10:29 PG Care Time/CCT Total # of Minutes Spent Total Time Spent with Patient: Total time spent is greater than 50% in coordination of care (as documented) at patient's floor/unit and/or counseling patient: Coding Level of Care Code 36231 Subseq Hosp Care Lvl 2 Diagnoses Pneumonia due to COVID-19 virus U07.1; J12.82 Acute respiratory failure with hypoxia J96.01 Benign hypertension I10 Hyperlipidemia E78.2 Hyperlipidemia type: mixed hyperlipidemia Morbid obesity with BMI of 40.0-44.9, adult E66.01; Z68.41 Abnormal LFTs R94.5 DVT prophylaxis Z29.9 (1) Hyperlipidemia Hyperlipidemia type: mixed hyperlipidemia Qualified Code(s): E78.2 - Mixed hyperlipidemia
[2021-02-24 06:53] LABS: Albumin Level 2.5 gm/dl (3.4-5.0); BUN Creatinine Ratio 24.1 (10-20); Calcium 8.5 mg/dl (8.5-10.1); Creatinine Clr Calc Pharmacy 92.9 ml/min; Est GFR (African American) 78.1; Est GFR (Non-African American) 67.4; Potassium 4.8 mmol/L (3.5-5.1)
[2021-02-24 06:56] LABS: Albumin Globulin Ratio 0.6 (0.9-2); Bilirubin,Total 0.8 mg/dl (0.2-1); Globulin 4.1 gm/dl (2.5-4.0); Total Protein 6.6 gm/dl (6.4-8.2)
[2021-02-24] MEDS: lisinopril 10 MG TAB PO SCH (07:54)
[2021-02-24] MEDS: MAGNESIUM OXIDE 400 MG TAB PO SCH (07:55)
[2021-02-24] MEDS: TRIAMTERENE/HCTZ 37.5/25MG TAB PO SCH (07:55)
[2021-02-24] MEDS: ENOXAPARIN INJ 60 MG/0.6 ML SYR SQ SCH (07:55)
[2021-02-24] MEDS: CHOLECALCIFEROL 1,000 UNITS 25 MCG TAB PO SCH (07:55)
[2021-02-24] MEDS: dexAMETHasone 6 MG in SYRINGE 0 ML IV SCH (07:59)
--- NOTE | 2021-02-24 14:10 | Discharge Summary ---
Date of Service date of admission - February 20, 2021 date of discharge - February 24, 2021 Admission HPI Per Admitting Provider Mr. Stephens is a delightful gentleman who presents after about 2 weeks of worsening respiratory symptoms. He notes he first got sick about 14 days ago, but at that point in time he noted it was mostly upper respiratory symptoms and sinus pressure. Further into that course, he started to have a bit more lower respiratory symptoms and some purulent sputum. In chart review it appears it was recommended that he have Covid testing but declined at the time, and was given empiric Augmentin. His symptoms continued to worsen and he came to the ER 3 days ago. At that point he looked fairly ill and it was recommended that he stay by both the ER physician and the admitting hospitalist. He declined and left against advice then. Since going home he has continued to feel worse and generally feeling very dyspneic with just about anything, dyspnea on exertion. Not really coughing up a lot of sputum anymore, he does have fevers every couple days and then whenever the fever breaks he has sweats. He did not have much of any appetite for much of the last 2 weeks, and was not eating a whole lot, but fortunately did not have much of a significant loss in taste or smell. Whenever I see him today he notes he is finally starting his appetite back, and as I enter his room he was actually eating lunch. He has no GI symptoms, no nausea vomiting diarrhea. No leg pain or swelling. Otherwise feels okay Principal Diagnosis acute hypoxic respiratory failure 2nd to COVID-19 pneumonia Discharge Exam Constitutional + obese; no acute distress and no altered mental status ENMT external ear and nose normal, oropharynx normal Respiratory no respiratory distress Auscultation: + diminished lung sounds (bases) and + crackles (faint, scattered, bases ) Cardiovascular Rate/Rhythm: regular rate and regular rhythm Heart Sounds: normal S1 and normal S2; no murmur Vessels: posterior tibial pulses present and dorsalis pedis pulses present; no JVD Extremities: no edema Gastrointestinal (Abdomen) normal bowel sounds, soft, nontender, no hepatosplenomegaly Psychiatric A+Ox3, euthymic affect Discharge Data Allergies Allergy/AdvReac Type Severity Reaction Status Date / Time No Known Allergies Allergy Verified 02/26/21 09:17 Consultations PT, OT Respiratory Therapy Procedures Performed 2-step ambulatory oxygen test -- demonstrated the need for 2 liters of [place] O2 with ambulation/activity only Ordered Studies 02/20/21 09:55 CT angio chest PE protocol Stat IMPRESSION: 1. No pulmonary emboli. 2. Extensive bilateral groundglass and alveolar opacities compatible with viral pneumonia. 3. Right hilar adenopathy, likely reactive. 4. Trace pleural effusions. 5. Small hiatal hernia. Hospital Course (1) Pneumonia due to COVID-19 virus: clinically improved during the hospitalization with use of dexamethasone, pulmonary toilet, and supportive care. received 5 days of dexamethasone 6mg daily while hospitalized. He will complete 5 more days of therapy at home. received lovenox for DVT prophylaxis. at discharge will take xarelto 10mg daily x 30 days for VTE prophylaxis given high risk of VTE with COVID. procalcitonin was normal, and thus antibiotics were deferred for secondary bacterial infection coverage. O2 requirements dramatically improved in the 48 hours prior to discharge. however, 2-step O2 test did demonstrate the need for ambulatory oxygen -- 2 liters with activity only. of note - plasma/remdesivir were both deferred during this admission as patient was well past 10 days into the illness at time of presentation. Finally, patient was given a follow-up appointment with [facility] given the severity of his illlness and the need for oxygen at time of discharge. (2) Acute respiratory failure with hypoxia: 2nd COVID-19 pneumonia improved as above (3) Benign hypertension: controlled continue usual meds (4) Hyperlipidemia: not on meds for such (5) Morbid obesity with BMI of 40.0-44.9, adult: BMI ~40 (6) Abnormal LFTs: suspect this was due to COVID-19 infection itself AST and ALT were only mildly elevated I did recommend that he have his LFTs repeated in 1 week post-discharge to ensure stability (7) DVT prophylaxis: received lovenox twice daily while here given the high risk of VTE in setting of COVID. at discharge I recommended a 30-day course of xarelto 10mg daily. A voucher was given for the xarelto. seen by PT/OT and cleared for home by them. Total Time Total Time Spent Total Time Spent (In Minutes): 45 Total Time Includes: Examination of the Patient, Discharge Planning and Medication Reconciliation Discharge Plan Discharge Items Patient Disposition: Home - Self-Care Reason For Visit: COVID-19 Pneumonia Discharge Diagnosis: 1. COVID-19 Pneumonia - improving 2. abnormal liver function tests - improving; likely due to COVID-19 illness Activity: As commented below Activity Comment: gradually increase your activities as tolerated over next 1-2 weeks Non-emergency contact: Primary Care Provider and Accounts Payable Accountant Call non-emergency contact if: you have any medication questions, your symptoms worsen and you have a fever Follow-up/Referrals: [facility] [Provider Group] (first available; dx - COVID-19 pneumonia (mod-severe), on home O2 ) Artis Donato, [Primary Care Provider] - (see Dr Donato within 1 week (in person, or telehealth visit)) Diet: Heart Healthy Addtl Attending Provider Instructions: Mr Stephens, You were treated for COVID-19 pneumonia while hospitalized. You received IV steroids, oxygen, and other supportive treatments. With time your oxygen requirements decreased and your symptoms improved. At time of discharge you are no longer requiring oxygen at rest but you will need oxygen with activity/ambulation (2 liters). You can also use the oxygen with sleep. Recommendations - 1. dexamethasone steroid - 6mg once daily with food for 5 more days. Start on 02/25/21. If you already have this at home you can use your home stock. If not I have sent a new prescription to the pharmacy for you. This is for your breathing/pneumonia. 2. stop any recently prescribed antibiotic. 3. continue your once daily low-dose aspirin 81mg daily as previous. 4. for prevention of blood clots in your legs and lungs while you are recovering from COVID take - * Xarelto 10mg once daily for 30 days * start 02/25/21 * be sure to take the voucher to the pharmacy as it will be free for you * again take for 30 days only 5. for any cough/congestion you can take [id number] mucinex 1200mg up to twice daily as needed/as desired. 6. for heartburn/reflux/prevention of stomach irritation please take [id number] pepcid 20mg twice daily for 30 days. You can stop this when the Xarelto stops. 7. continue the "tummy time" (belly breathing/proning) 3-4 hours a day (or more) for the next 1-2 weeks. 8. continue the flutter valve/incentive spirometry breathing exercises for another 1-2 weeks. 9. check your oxygen twice daily with the pulse oximeter on your finger. Be sure your readings are consistently greater than 90%. 10. follow-up - see separate section 11. you are no longer contagious to others. It is permissible to leave your home as desired. Wear a mask, of course, any time you are in public. 12. in about 3 months please strongly consider getting the COVID vaccine. Your natural immunity will likely last only 6-12 months. The vaccine will give you extra protection for the future against another case of COVID illness. Return to [facility] if - * you develop recurrent fevers over 100 degrees * you have worsening shortness of breath or chest pains * you have to increase the oxygen on your oxygen tank * your oxygen levels via the pulse oximeter are less than 90% consistently * you develop any bleeding from the rectum or urine * any other concerns It was our pleasure to care for you! Please continue to feel better! Best wishes, -Dr Mustafa Pending Studies at Discharge: No Stand-Alone Forms: My [facility], Smoking Cessation Medications and DC Order Prescriptions: New aspirin 81 mg tablet,delayed release (DR/EC) 81 mg PO DAILY Qty: 1 RF: 0 (DME) Oxygen Home Liters Per Minute 1 ea .Route DIRECTED Qty: 1 RF: 0 Continued triamterene-hydrochlorothiazid 37.5-25 mg tablet 1 tab PO DAILY Qty: 90 RF: 1 lisinopril 10 mg tablet 10 mg PO DAILY Qty: 30 RF: 5 cholecalciferol (vitamin D3) [Vitamin D3] 25 mcg (1,000 unit) Capsule 25 mcg PO DAILY RF: 0 magnesium 200 mg Tablet 200 mg PO DAILY RF: 0 dexamethasone [Decadron] 6 mg tablet 6 mg PO DAILY 5 Days Qty: 5 RF: 0 Discontinued amoxicillin-pot clavulanate 875-125 mg tablet 1 tab PO BID Qty: 14 RF: 0 No Action Eliquis 5 mg tablet 5 mg PO BID Qty: 60 RF: 0 Discharge Orders: Discharge Order (Routine); Ordered 02/24/21 Ordered By: Freddy Rodriguez/Other Patient Handouts: 2019-nCoV, COVID-19 Prevention, COVID-19 Home Care, Proning COVID-19, Disinfecting Your Home of COVID-19, Simple Ways to Avoid COVID-19 Admission Data Admit Date/Time: 02/20/21 09:27 Attending Provider: Freddy Mustafa Admit Provider: Esvin Tanner Primary Care Provider: Artis Donato Other Providers: Esvin Tanner Other Interventions: Discharge Summary Assessment (RN) Last Done: 02/24/21 14:14 Coding Level of Care Code D/C Day Management >30 mins Diagnoses Pneumonia due to COVID-19 virus U07.1; J12.82 Acute respiratory failure with hypoxia J96.01 Benign hypertension I10 Hyperlipidemia E78.2 Hyperlipidemia type: mixed hyperlipidemia Morbid obesity with BMI of 40.0-44.9, adult E66.01; Z68.41 Abnormal LFTs R94.5 DVT prophylaxis Z29.9
== END 2021-02-24 16:00 | disposition home or self-care (01) | DRG 91 ==
LOC: ED 06:25 → 2E 09:27 → SUATTDRO 09:27 → 2E 10:58 → 2S 02-24 07:31